=== PATIENT | male | born 1965 | race Native Hawaiian/Other Pacific Islander ===

== ENCOUNTER 2022-08-15 16:20 | Emergency (ER) | payer OTHER ==
[~2022-08-15] VITALS: Ht 165.1 cm; Wt 61.2 kg
[2022-08-15 16:25] VITALS: TEMP 98.3
[2022-08-15] MEDS ORDERED: PRED5TAB3 PO (16:39)
[2022-08-15] MEDS ORDERED: NAPROXEN EC500 MG PO (16:40)
[2022-08-15] MEDS ORDERED: HYDROCODONE BIT1 TA1 PO (16:41)
[2022-08-15] MEDS ORDERED: FERROUS SULF325 M1 PO (16:42)
[2022-08-15] MEDS ORDERED: MOBIC15 MG PO (16:42)
[2022-08-15] MEDS ORDERED: GABA100C2 PO (16:43)
[2022-08-15 18:01] VITALS: BP 130/68
== END 2022-08-15 18:15 | disposition home or self-care (01) ==
LOC: ED 16:20
DX: M25.552 Pain in left hip (principal); M13.852 Other specified arthritis, left hip; Z98.890 Other specified postprocedural states
CPT/HCPCS: 96372; 99283; J1885